=== PATIENT | female | born 1985 | race African-American/Black ===

== ENCOUNTER 2021-03-31 14:48 | Emergency (ER) | payer OTHER, SELFPAY ==
[2021-03-31 14:52] VITALS: BP 115/73; PULSE 88; RESP 18; TEMP 37.1; O2SAT 93; BMI 27.4
--- NOTE | 2021-03-31 15:10 | ED_ITS ---
HPI - General Adult General Chief complaint: General Medical Stated complaint: loss of taste and smell, headache Source: patient Mode of arrival: ambulatory Limitations: no limitations History of Present Illness HPI narrative: Patient presents to ED for loss of taste and loss of smell but slight headache. Patient states loss of taste and loss of some a for the last 3 days and this morning woke up with feeling warm, body aches, slight headache. Patient got swab at her job for COVID. Patient got swab with the COVID PCR sent out and is waiting for results. Patient states most likely she will have results by tomorrow. Patient denies any chest pain or shortness of breath. Related Data Allergies Allergy/AdvReac Type Severity Reaction Status Date / Time No Known Allergies Allergy Verified 03/31/21 15:11 Review of Systems Review of Systems: Yes all other systems are reviewed and are negative Constitutional: Constitutional: Reports as per HPI, Reports no additional constitutional complaints, Reports body ache(s) and Reports headache(s) Eyes: Eyes: Reports as per HPI and Reports no additional eye complaints ENT: Reports system reviewed and no additional complaints, except as documented, Reports as per HPI and Reports headache(s) Comments: Loss of taste and loss of smell Cardiovascular: Cardiovascular: Reports as per HPI and Reports no additional cardiovascular complaints Respiratory: Respiratory: Reports as per HPI and Reports no additional respiratory complaints Gastrointestinal: Gastrointestinal: Reports as per HPI and Reports no additional gastrointestinal complaints Genitourinary: Genitourinary: Reports no additional female genitourinary complaints and Reports as per HPI Musculoskeletal: Musculoskeletal: Reports no additional musculoskeletal complaints and Reports as per HPI Neurologic: Reports system reviewed and no additional complaints, except as documented, Reports as per HPI and Reports headache(s) Psychiatric: Psychiatric: Reports no additional psychiatric complaints and Reports as per HPI [facility] Past Medical History Medical History (Updated 03/31/21 @ 15:56 by WENDY Keys) No active medical problems Social History Social History Smoking Status: Never smoker Use of substances other than those prescribed or required for medical reasons: No Advance Directives: No Advance Directives Information Provided: Yes Patient : No Physical Exam Vital Signs: Vital Signs: Last Vital Signs Temp 98.7 F 03/31/21 14:52 Pulse 87 03/31/21 15:30 Resp 18 03/31/21 15:30 BP 105/67 03/31/21 15:30 Pulse Ox 95 05/09/21 15:30 Body Mass Index 27.4 Const: General: cooperative, healthy appearing, comfortable, no acute distress, well developed, alert, awake and Physically active Orientation/consciousness: patient oriented x3 HENMT: Head: Yes normal to inspection, Yes No palpable skull fracture present, Yes normocephalic and Yes atraumatic Eyes: General: appearance normal, both eyes and all related structures Neck: Neck: Yes normal visual inspection, Yes full ROM, Yes no lymphadenopathy, Yes no meningeal signs, Yes trachea midline, Yes supple and No tender Chest: Chest palpation & inspection: normal inspection of the chest and normal palpation of entire chest wall Resp: Effort & Inspection: normal respiratory effort and able to speak in complete sentences Auscultation: clear to auscultation bilaterally Cardio: Jugular venous distension: no JVD Heart sounds: S1 normal heart sound present and S2 normal heart sound present GI: Inspection: Yes normal to inspection and No abdominal wall ecchymosis Palpation (GI): Soft to palpation, not firm, nontender, no guarding and not rigid : General: No CVA tenderness and Yes no CVA tenderness Back/Spine/Pelvis: Back: no CVA tenderness, No CVA tenderness and No back tenderness Skin: General skin exam: no rashes or lesions noted and elasticity normal Neuro: General: patient oriented x3, no meningeal signs and CN's II-XI intact bilaterally Cranial nerves: Yes CN's II-XII intact bilaterally Extrem: General: Yes normal to inspection and Yes full ROM Psych: Appearance: grossly normal, well kempt and not disheveled Course Course Course Narrative: Patient not in any distress. Patient vital signs stable. Will do the COVID ab and rapid swab results. Patient already had PCR swab done yesterday at her job waiting for results. Reevaluation(s) Reevaluation #1: Patient's COVID swab came back positive. Patient made aware of this. Patient informed to self quarantine for 2 weeks. Patient informed to return to the ED immediately if she has chest pain or shortness of breath. Medical Decision Making MDM Narrative Medical decision making narrative: COVID Lab Data Labs: Lab Results 03/31/21 Range/Units 15:21 COVID-19 ([facility]) Positive A (Negative) COVID-19 Clin Com See Note Discharge Plan Discharge Clinical Impression: COVID-19 Patient Disposition: Home, Self-Care Instructions: COVID-19 (Coronavirus Disease 2019) (ED) Additional Instructions: Return to the ED immediately for any chest pain, shortness of breath, dizziness, weakness, calf pain, coughing up blood, swelling of lower extremities, or any other concerning symptoms. Recommend 14 days self-isolation. Stand Alone Forms: Work/School Release Interventions: ED Discharge Assessment Last Done: 03/31/21 16:04 Discharge Date/Time: 03/31/21 16:05 Print Language: Guamanian
[2021-03-31 15:30] VITALS: BP 105/67; PULSE 87; RESP 18; O2SAT 95
[2021-03-31 15:46] LABS: COVID-19 Test Positive (Negative); IDNOW Serial# 08D9AD1C
== END 2021-03-31 16:05 | disposition home or self-care (01) ==
PROVIDERS: Physician Assistant; Emergency Provider Emergency Medicine Emergency Medical Services
DX: U07.1 COVID-19 (principal); R43.8 Other disturbances of smell and taste; R51.9 Headache, unspecified
CPT/HCPCS: 36415; 87635; 99284

== ENCOUNTER 2021-04-15 13:18 | Outpatient (REF) | payer OTHER, SELFPAY ==
[2021-04-15 13:39] LABS: COVID-19 Test Negative (Negative)
== END 2021-04-15 13:19 | disposition home or self-care (01) ==
LOC: HO.LAB 13:18
PROVIDERS: Visit Provider Internal Medicine
DX: Z20.822 Contact with and (suspected) exposure to COVID-19 (principal)
CPT/HCPCS: 36415; 87635; C9803

== ENCOUNTER 2021-06-18 11:53 | Outpatient (REF) | payer OTHER, SELFPAY | END 2021-06-18 11:54 | disposition home or self-care (01) | LOC: HO.LAB 11:53 | PROVIDERS: Visit Provider Internal Medicine | DX: Z20.822 Contact with and (suspected) exposure to COVID-19 (principal) | CPT/HCPCS: C9803; U0003; U0005 ==

== ENCOUNTER 2021-11-27 15:32 | Outpatient (REF) | payer OTHER, SELFPAY ==
--- NOTE | ~2021-11-27 | CT_ITS ---
EXAMINATION: CT ABDOMEN AND PELVIS WITH CONTRAST CLINICAL INFORMATION: RLQ pain, R flank pain, ectopic, rule out appy, kid stone COMPARISON: None TECHNIQUE: Multidetector volumetric images were obtained from the superior aspect of the liver through the pubic symphysis following administration 85 mL of Omnipaque 350 intravenous contrast. Sagittal and coronal reformatted images were obtained on the technologist's workstation. Oral contrast: No This CT examination was performed using dose optimization techniques as appropriate, variously including the following: *Automated exposure control *Adjustment of mA and/or kV according to patient size (this includes techniques or standardized protocols for targeted exams where dose is matched to indication/reason for exam; i.e. extremities or head) *Use of iterative reconstruction technique DLP: 559 mGy-cm FINDINGS: LUNG BASES: The visualized lung bases are unremarkable. Minimal scarring present at the right lung base LIVER, GALLBLADDER, AND BILIARY TREE: The liver is normal in size, shape, and attenuation. Characteristic hypodensity adjacent to falciform ligament probably secondary to focal fat or differences in venous drainage. This is not a worrisome finding. No concerning focal hepatic lesion or biliary ductal dilatation is present. The gallbladder is unremarkable with no evidence of radiopaque gallstones, gallbladder wall thickening, or obvious pericholecystic inflammatory changes. PANCREAS: Unremarkable. SPLEEN: Unremarkable. ADRENAL GLANDS: Unremarkable. KIDNEYS AND URETERS: The kidneys are normal in size, shape, and attenuation. Tiny bilateral renal cortical densities are seen the largest measuring only 6 mm in size. These are all indeterminate but statistically cysts. These need no further follow-up. No worrisome definite solid renal mass is seen No hydronephrosis, hydroureter, or calculi seen. No perinephric stranding. BLADDER: Poorly filled but unremarkable. GASTROINTESTINAL TRACT: The small and large bowel are unremarkable. The appendix is unremarkable. ABDOMINAL WALL: No significant hernia is appreciated. LYMPH NODES: No retroperitoneal lymphadenopathy. VASCULAR: Both ovarian veins aren't dilated demonstrating reflux filling bilateral pelvic varices the aorta and iliofemoral vessels appear normal. The IVC is unremarkable.. PELVIC VISCERA: The small rounded abnormality that contained a questionable gestational sac on the ultrasound is seen on the CT scan and measures 2 cm diameter.) 4:512). The shadowing structure in the left adnexa is well seen on the CT and represents a water density cyst with a thick walled eggshell type calcified rim. A small amount of free fluid is present in the pelvis. OSSEOUS STRUCTURES: Unremarkable. CT/CT abdomen pelvis w con IMPRESSION: * Similar findings that were present on ultrasound are demonstrated on the CAT scan. There is a question of an ectopic in the right adnexa. Please correlate with hCG levels. * The findings seen on the left represents a benign appearing thick walled calcified ovarian cyst. * No renal calculi or hydronephrosis is seen. Fleischner guidelines were followed.
--- NOTE | ~2021-11-27 | US_ITS ---
EXAMINATION: US OBSTETRICAL ULTRASOUND CLINICAL INFORMATION: Right-sided pelvic pain with positive test COMPARISON: None. LMP: Uncertain. TECHNIQUE: Both transabdominal and endovaginal scanning was performed FINDINGS: The uterus appears enlarged measuring 10.3 x 6.3 x 6.8 cm. The endometrium appears quite thick but was not measured by the technologist.. It appears to measure at least 1.6 cm. A gestational sac is not seen. No fluid is present in the endometrial canal The left ovary measures 3.1 x 2.2 x 2.9 cm and contains a 1.6 x 1.1 x 1.3 cm cyst. Complex fluid is present in the left adnexa as well as in the cul-de-sac. Within the left adnexa adjacent to the left ovary there is a structure that it appears to be a gestational sac with a yolk sac within. Based upon the size of this, gestational is present this would be about 5 weeks. No heartbeat or pole is seen. Also seen in the left adnexa is a shadowing mass poorly characterized measuring about 4.1 x 2.8 x 2.7 cm questioning a dermoid. US/US OB pelvic and transvaginal IMPRESSION: A gestational sac is not present in the endometrial canal. There is a question of an ectopic gestational sac in the left adnexa the yolk sac seen but no pole or heartbeat. Given the presence of a question of an abnormal left adnexal mass as well, pelvic MRI may be of value.
[2021-11-27 17:07] VITALS: BP 135/70; PULSE 88; RESP 18; TEMP 36.6; O2SAT 100; BMI 26.5
[2021-11-27 18:03] LABS: Appearance Urine CLEAR; Color Urine YELLOW; Glucose Urine UA NEG (NEG); Leukocyte Esterase Urine NEG (NEG); Nitrite Urine NEG (NEG); Specific Gravity - Urine 1.025 (1.005-1.025); UACC Culture Trigger NO; Urine Blood TRACE (NEG); Urine Ketones 5 MG/DL (NEG); Urine Protein TRACE MG/DL (NEG-TRACE)
[2021-11-27 18:04] LABS: UPreg QC Valid YES; Urine Pregnancy POSITIVE (NEGATIVE)
[2021-11-27 18:14] LABS: Mucus Urine 2+ /LPF; Squamous Epithelial Cell Urine 1+ /LPF
[2021-11-27 18:16] LABS: Bacteria Urine TRACE /LPF; WBC Urine 0-2 /HPF (0-4)
[2021-11-27 20:10] LABS: MANUAL DIFF FLAG NO
[2021-11-27 20:15] LABS: Basophils Percent Auto 0.3 % (0-2); Eosinophils Absolute Auto 0.1 X10*3/uL (0.0-0.4); Eosinophils Percent Auto 0.5 % (0-4); Hematocrit 37.1 % (37.0-47.0); Hemoglobin 12.5 g/dl (12.0-16.0); Imm Gran Abs Auto 0.06 X10*3/uL (0.00-0.03); Imm Gran Pct Auto 0.5 % (0.0-0.4); Lymphocytes Absolute Auto 3.1 X10*3/uL (1.2-4.9); Lymphocytes Percent Auto 25.7 % (20-40); Mean Corpuscular HGB Conc 33.7 g/dl (31.0-35.0); Mean Corpuscular Hemoglobin 30.7 pg (27.0-33.0); Mean Corpuscular Volume 91.2 fL (80.0-98.0); Mean Platelet Volume 10.1 fL (9.4-12.3); Monocytes Absolute Auto 1.1 X10*3/uL (0.1-1.2); Monocytes Percent Auto 8.9 % (2-11); Neutrophils Absolute Auto 7.7 x10*3/uL (2.0-8.3); Neutrophils Percent Auto 64.1 % (45-73); Platelet Count 314 X10*3/uL (160-400); Red Blood Count 4.07 X10*6/uL (4.20-5.50); Red Cell Distribution Width 13.1 % (11.0-16.0)
[2021-11-27 20:28] LABS: Alanine Aminotransferase 18 U/L (0-31); Albumin Level 4.4 g/dL (3.5-5.0); Alkaline Phosphatase 43 U/L (39-117); Anion Gap 11 (12-20); Aspartate Amino Transferase 17 U/L (5-31); Bilirubin Total 0.7 mg/dL (0.0-1.0); Blood Urea Nitrogen 8 mg/dL (9-16); Carbon Dioxide 28 mmol/L (22-29); Chloride 105 mmol/L (96-108); Creatinine Clr Calc Pharmacy 106.3; Estimated Glomerular Filt Rate > 60; Glucose Random 84 mg/dL (60-115); Lipase 9 U/L (8-78); Potassium 3.9 mmol/L (3.3-5.1); Sodium 140 mmol/L (135-145); Total Protein 7.3 g/dL (6.5-8.0)
[2021-11-27 20:30] VITALS: BP 102/57; PULSE 81; RESP 16; TEMP 37.3; O2SAT 100
[2021-11-27 20:34] LABS: HCG Quantitative 4367 mIU/mL
--- NOTE | 2021-11-27 21:05 | ED_ITS ---
HPI - Abdominal Pain General Chief Complaint: Abdominal Pain Stated Complaint: abd pain Time Seen by Provider: 11/27/21 18:08 Source: patient Mode of arrival: ambulatory Limitations: no limitations History of Present Illness HPI narrative: 35-year-old female Who presents emergency department for evaluation of right lower quadrant and right flank pain. Patient states that yesterday at around 1:00 p.m. after eating [place] food she had a sudden onset sharp pain in her right lower quadrant and her right flank area. She states the pain was a constant pain and was 10/10. She had multiple episodes of nausea and vomiting associated with the pain. She states that today the pain was less severe but is still located in the right lower quadrant of her abdomen. She has had nausea with no vomiting. patient had a positive urine test here in the emergency department, she did not know that she was . The patient's last menstrual was October 20, 2021 which would make her approximately 5 weeks . The patient therefore is a , she states she has 2 children. She denied fever, chills, chest pain, shortness of breath, frequency, urgency or dysuria. Related Data Allergies Allergy/AdvReac Type Severity Reaction Status Date / Time No Known Allergies Allergy Verified 11/27/21 17:06 Review of Systems Review of Systems Yes all other systems are reviewed and are negative Physical Exam Vital Signs: Vital Signs: Last Vital Signs Temp 99.1 F 11/27/21 20:30 Pulse 81 11/27/21 20:30 Resp 16 11/27/21 20:30 BP 102/57 L 11/27/21 20:30 Pulse Ox 100 11/27/21 20:30 BMI result Body Mass Index 26.5 Const: General: cooperative and no acute distress Or ientation/consciousness: oriented to person and oriented to place Limitat ions: no limitations HENMT: Head: Yes normal to inspection, Yes normocephalic and Yes atraumatic Ears: external ears normal General nose exam: Normal external nose present Face and sinus: Yes normal facial exam Mouth: Normal oral and palatal mucosa present Throat: Yes posterior oropharynx normal Eyes: General: appearance normal, both eyes and all related structures Pupils: Equal, round and reactive pupils present Neck: Neck: Yes normal visual inspection, Yes no lymphadenopathy, Yes trachea midline and Yes supple Chest: Chest palpation & inspection: normal inspection of the chest and normal palpation of entire chest wall Resp: Effort & Inspection: normal respiratory effort and able to speak in complete sentences Auscultation: clear to auscultation bilaterally Cardio: Rate: regular rate Rhythm: regular rhythm Heart sounds: S1 normal heart sound present, S2 normal heart sound present and no murmurs GI: Inspection: Yes normal to inspection Palpation (GI): Soft to palpation, Tenderness to palpation present (GI) in the RLQ ( Moderate) and suprapubicly ( moderate); Negative for not in the LLQ and not in the LUQ and no guarding Auscultation: normal bowel sounds : General: Yes no CVA tenderness Back/Spine/Pelvis: Back: no CVA tenderness Skin: General skin exam: no rashes or lesions noted Neuro: General: oriented to person and oriented to place Cranial nerves: Yes CN's II-XII intact bilaterally and Yes Equal, round and reactive pupils present Cognition (Neuro): normal cognition Motor exam (neuro): 5/5 motor strength present throughout Extrem: General: Yes normal to inspection Psych: Appearance: grossly normal Speech and movement: Normal speech and movement present Affect: normal affect Attitude: cooperative Thought process: Normal thought process present Thought content: Normal thought content present Course Course Course Narrative: 35-year-old female who presented to emergency department for evaluation of sudden onset right lower quadrant and right flank pain which began yesterday at 1:00 p.m. after she ate [place] food. The patient stated the pain was 10/10 and associated with nausea and vomiting. The pain also radiated to her vaginal area. The patient had persistent pain today and came to the emergency department for evaluation. The patient did not know that she was until we obtained a positive urine test. Patient is a . 2143: Laboratory evaluation: CBC and a normal comprehensive metabolic panel. Patient's urinalysis was trace positive for blood, trace positive for protein, microscopic revealed 4 RBCs, 2 WBCs 1 +bacteria 1+ squamous cells. Urine test was positive. Quantitative beta-hCG was 4367. Radiology evaluation : Pelvic ultrasound revealed complex fluid in the left adnexa as well and as in the called a sacs Within the left adnexa adjacent to the left ovary there is a structure that appears to be a gestational sac with a yolk sac and based on the size the patient is approximately 5 weeks This gestational age correlates with her LMP. There is no heartbeat or pole noted. Patient also has a left adnexal mass poorly characterized measuring 4 x by 2.8 x 2.7 cm questioning and dermoid cyst. I discuss these findings with Dr. Guevara who will come to the emergency department evaluate the patient. 2321: The patient's CT scan is more consistent with a right ectopic and I did discuss this with the radiologist who interpreted the x- rays. I did discuss this reading also with the surgeon, . the patient does have right lower quadrant tenderness which correlates more with the radiologist CT scan reading. Given the fact that there was a concern about a ruptured ectopic, the patient is still going to go to the emergency department for exploratory surgery as per . MDM - Abdominal Pain Lab Data Result diagrams: 11/27/21 20:05 11/27/21 20:05 Labs: Lab Results 11/27/21 11/27/21 11/27/21 Range/Units 17:54 17:54 20:05 WBC 12.0 H (4.8-10.8) X10*3/uL RBC 4.07 L (4.20-5.50) X10*6/uL Hgb 12.5 (12.0-16.0) g/dl Hct 37.1 (37.0-47.0) % MCV 91.2 (80.0-98.0) fL MCH 30.7 (27.0-33.0) pg MCHC 33.7 (31.0-35.0) g/dl RDW 13.1 (11.0-16.0) % Plt Count 314 (160-400) X10*3/uL MPV 10.1 (9.4-12.3) fL Immature Gran % (Auto) 0.5 H (0.0-0.4) % Neut % (Auto) 64.1 (45-73) % Lymph % (Auto) 25.7 (20-40) % [place] % (Auto) 8.9 (2-11) % Eos % (Auto) 0.5 (0-4) % Baso % (Auto) 0.3 (0-2) % Lymph # (Auto) 3.1 (1.2-4.9) X10*3/uL [place] # (Auto) 1.1 (0.1-1.2) X10*3/uL Eos # (Auto) 0.1 (0.0-0.4) X10*3/uL Baso # (Auto) 0.0 (0.0-0.2) X10*3/uL Abs Immat Gran (auto) 0.06 H (0.00-0.03) X10*3/uL Absolute Neuts (auto) 7.7 (2.0-8.3) x10*3/uL Absolute Nucleated RBC 0.000 (0.0-0.012) X10*3/uL Nucleated RBC % (auto) 0.0 (0.0-0.2) /100WBC Sodium (135-145) mmol/L Potassium (3.3-5.1) mmol/L Chloride (96-108) mmol/L Carbon Dioxide (22-29) mmol/L Anion Gap (12-20) BUN (9-16) mg/dL Creatinine (0.5-1.4) mg/dL Estim Creat Clear Calc Estimated GFR Random Glucose (60-115) mg/dL Calcium (8.4-10.2) mg/dL Total Bilirubin (0.0-1.0) mg/dL AST (5-31) U/L ALT (0-31) U/L Alkaline Phosphatase (39-117) U/L Total Protein (6.5-8.0) g/dL Albumin (3.5-5.0) g/dL Lipase (8-78) U/L Beta HCG, Quant mIU/mL Urine Color YELLOW Urine Appearance CLEAR Urine pH 6.0 (5.0-8.0) Ur Specific [place] 1.025 (1.005-1.025) Urine Protein TRACE (NEG-TRACE) MG/DL Urine Glucose (UA) NEG (NEG) MG/DL Urine Ketones 5 (NEG) MG/DL Urine Blood TRACE (NEG) Urine Nitrite NEG (NEG) Ur Leukocyte Esterase NEG (NEG) Urine RBC 1-4 (0) /HPF Urine WBC 0-2 (0-4) /HPF Ur Squamous Epith Cells 1+ /LPF Urine Bacteria TRACE /LPF Urine Mucus 2+ /LPF Urine Test POSITIVE H (NEGATIVE) COVID-19 ([facility]) (Negative) COVID-19 Clin Com 11/27/21 11/27/21 11/27/21 Range/Units 20:05 20:05 21:18 WBC (4.8-10.8) X10*3/uL RBC (4.20-5.50) X10*6/uL Hgb (12.0-16.0) g/dl Hct (37.0-47.0) % MCV (80.0-98.0) fL MCH (27.0-33.0) pg MCHC (31.0-35.0) g/dl RDW (11.0-16.0) % Plt Count (160-400) X10*3/uL MPV (9.4-12.3) fL Immature Gran % (Auto) (0.0-0.4) % Neut % (Auto) (45-73) % Lymph % (Auto) (20-40) % [place] % (Auto) (2-11) % Eos % (Auto) (0-4) % Baso % (Auto) (0-2) % Lymph # (Auto) (1.2-4.9) X10*3/uL [place] # (Auto) (0.1-1.2) X10*3/uL Eos # (Auto) (0.0-0.4) X10*3/uL Baso # (Auto) (0.0-0.2) X10*3/uL Abs Immat Gran (auto) (0.00-0.03) X10*3/uL Absolute Neuts (auto) (2.0-8.3) x10*3/uL Absolute Nucleated RBC (0.0-0.012) X10*3/uL Nucleated RBC % (auto) (0.0-0.2) /100WBC Sodium 140 (135-145) mmol/L Potassium 3.9 (3.3-5.1) mmol/L Chloride 105 (96-108) mmol/L Carbon Dioxide 28 (22-29) mmol/L Anion Gap 11 L (12-20) BUN 8 L (9-16) mg/dL Creatinine 0.67 (0.5-1.4) mg/dL Estim Creat Clear Calc 106.3 Estimated GFR > 60 Random Glucose 84 (60-115) mg/dL Calcium 10.0 (8.4-10.2) mg/dL Total Bilirubin 0.7 (0.0-1.0) mg/dL AST 17 (5-31) U/L ALT 18 (0-31) U/L Alkaline Phosphatase 43 (39-117) U/L Total Protein 7.3 (6.5-8.0) g/dL Albumin 4.4 (3.5-5.0) g/dL Lipase 9 (8-78) U/L Beta HCG, Quant 4367 mIU/mL Urine Color Urine Appearance Urine pH (5.0-8.0) Ur Specific [place] (1.005-1.025) Urine Protein (NEG-TRACE) MG/DL Urine Glucose (UA) (NEG) MG/DL Urine Ketones (NEG) MG/DL Urine Blood (NEG) Urine Nitrite (NEG) Ur Leukocyte Esterase (NEG) Urine RBC (0) /HPF Urine WBC (0-4) /HPF Ur Squamous Epith Cells /LPF Urine Bacteria /LPF Urine Mucus /LPF Urine Test (NEGATIVE) COVID-19 ([facility]) Negative (Negative) COVID-19 Clin Com See Note Discharge Plan Discharge Patient Disposition: Admitted As Inpatient [facility] Past Medical History [facility] Narrative: Past medical history: None. Past surgical history: None. Social history: She denies tobacco use. She occasionally drinks alcohol. She denies drug use. Medical History No active medical problems Social History Social History Advance Directives: No Advance Directives Information Provided: No Patient : No
[2021-11-27 21:41] LABS: COVID-19 Test Negative (Negative)
--- NOTE | 2021-11-27 21:53 | P.CONOB_ITS ---
[employer] - CN: HPI Data of Consult Consult date: 11/27/21 Primary Care Provider: None Physician Consult Narrative Narrative: I was consulted on Myriam Orozco who is a 35 year old 3 para 2, LMP October 14 2021, making her by today at 6 weeks 2 days of gestation who presented to the emergency department complaining of of right lower quadrant and right flank pain, the pain started around 1:00 p.m. evelyn hollins, was sharp in her right lower quadrant and her right flank area.? She states the pain was a constant pain and was 10/10, associated with multiple episodes of nausea and vomiting .? She states that today the pain is persistent but with less severe.?She denied fever, chills, chest pain, shortness of breath, frequency, urgency or dysuria. The following workup was done in the emergency room : a positive urine test , H&H 37.1/12.5, hCG 4367. Rh pending, pelvic Ultrasound showed the following: A gestational sac is not present in the endometrial canal.There is a question of an ectopic gestational sac in the left adnexa the yolk sac seen but no pole or heartbeat, Complex fluid is present in the left adnexa as well as in the cul-de-sac. Also seen in the left adnexa is a shadowing mass poorly characterized measuring about 4.1 x 2.8 x 2.7 cm questioning a dermoid. CT scan: The small rounded abnormality that contained a questionable gestational sac on the ultrasound is seen on the CT scan and measures 2 cm diameter.) 4:512). The shadowing structure in the left adnexa is well seen on the CT and represents a water density cyst with a thick walled eggshell type calcified rim. A small amount of free fluid is present in the pelvis. cc:: CC: [employer] - Review of Systems Review of Systems ROS Unobtainable: All systems reviewed & are unremarkable except as noted in HPI and below Cardiovascular: Denies Palpatations, Loss of consciousness or Chest pain Respiratory: Denies Cough, Wheezing or Shortness of breath Musculoskeletal: Denies Low back pain Gastrointestinal: Denies Heartburn, Constipation, Diarrhea, Nausea or Vomiting Genitourinary: Denies Pain with urination, Burning with urination or Urinary frequency Neurological: Denies Migranes Psychological: Denies Depression OB PMF Past Medical History Medical History No active medical problems Social History Social History Advance Directives: No Advance Directives Information Provided: No Patient : No Meds Allergies Allergy/AdvReac Type Severity Reaction Status Date / Time No Known Allergies Allergy Verified 11/27/21 17:06 [employer] Physical Exam Vitals Vital signs: Temp Pulse Resp BP Pulse Ox 99.1 F 81 16 102/57 L 100 11/27/21 20:30 11/27/21 20:30 11/27/21 20:30 11/27/21 20:30 11/27/21 20:30 BMI result Body Mass Index 26.5 Constitutional General Appearance: Healthy appearing, Well-nourished and Well-developed Psychiatric Mood and Affect: active and alert, normal mood and normal affect Skin Appearance: No rashes and No lesions Lungs Respiratory Effort: No intercostal retractions Auscultation: Clear to auscultation Cardiovascular Auscultation: RRR Abdomen Auscultation/Inspection/Palpation: Non-distended and Tenderness (Right lower quadrant) Female Genitalia (Pelvic) Exam: Deferred [employer] - Results Labs CBC & Chem 7: 11/27/21 20:05 11/27/21 20:05 Labs: Short CBC 11/27/21 Range/Units 20:05 WBC 12.0 H (4.8-10.8) X10*3/uL Hgb 12.5 (12.0-16.0) g/dl Hct 37.1 (37.0-47.0) % Plt Count 314 (160-400) X10*3/uL BMP 11/27/21 20:05 Sodium 140 Potassium 3.9 Chloride 105 Carbon Dioxide 28 BUN 8 L Creatinine 0.67 Calcium 10.0 Liver Function 11/27/21 Range/Units 20:05 Total Bilirubin 0.7 (0.0-1.0) mg/dL AST 17 (5-31) U/L ALT 18 (0-31) U/L Alkaline Phosphatase 43 (39-117) U/L Albumin 4.4 (3.5-5.0) g/dL Urine 11/27/21 11/27/21 Range/Units 17:54 17:54 Urine Color YELLOW Urine Appearance CLEAR Urine pH 6.0 (5.0-8.0) Ur Specific [place] 1.025 (1.005-1.025) Urine Protein TRACE (NEG-TRACE) MG/DL Urine Glucose (UA) NEG (NEG) MG/DL Urine Test POSITIVE H (NEGATIVE) Imaging US - abdomen: Radiologist's impression: ITS Impressions Pelvic/Transvag US 11/27/21 19:50 IMPRESSION: A gestational sac is not present in the endometrial canal. There is a question of an ectopic gestational sac in the left adnexa the yolk sac seen but no pole or heartbeat. Given the presence of a question of an abnormal left adnexal mass as well, pelvic MRI may be of value. Assessment and Plan (1) Ectopic : Status: Acute Discussed with the patient the finding ultrasound, ectopic with complex fluid in the left adnexa and within the cul-de-sac, CT scan the 2 cm right ( not left) ectopic , small amount of fluid in the cul-de-sac and benign looking thick-walled calcified ovarian cyst. Since ultrasound is showing complex fluid adnexa and the cul-de-sac, ruptured tubal has to be ruled out. Given these findings I recommended laparoscopic salpingostomy/salpi ngectomy possible laparosocpic ovarian cystectomy/oophorectomy. All pros and cons, risks and benefits of each option were discussed with the patient including but not limited to: Bleeding, infection, possible injury to bladder, bowel, possible need for blood transfusion with all its risks, possible laparotomy, possible negative impact on future fertility, possible hysterectomy, in addition, discussed with the patient there is a possibility that the will not be identified grossly during laparoscopy, tubal rupture will be ruled out and then will treat with methotrexate postoperatively with a 15% risk of failure with the need of repeat surgical treatment . All questions answered, the patient verbalized understanding agreed with the plan and signed the consent (2) Ovarian cyst: Status: Acute Discussed with the patient the finding the ovarian cyst possible dermoid on ultrasound, and the following finding on CT scan: The findings seen on the left represents a benign appearing thick walled? calcified? ovarian cyst . discussed with the patient options of treatment including: Since CT scan is suggesting benign looking ovarian cyst expectant management is an option with repeat ultrasound in few months if persistent proceed with surgical treatment versus surgical treatment today by laparoscopic ovarian cystectomy/oophorectomy, all pros and cons, risks and benefits of each approach were discussed with the patient the patient decided to proceed with expectant management unless intrapelvic pathology is secondary to the ovarian cyst and necessitates ovarian cystectomy/oophorectomy
[2021-11-27] MEDS: iohexoL 350 MG/ML 100 ML INFUS..BTL IV (22:04)
[2021-11-28] VITALS (12 sets, daily range): BP systolic 100–142; BP diastolic 48–85; PULSE 90–115; RESP 16–20; TEMP 36.4–36.7; O2SAT 97–100
--- NOTE | 2021-11-28 00:13 | HO.ANESPROP2 ---
[facility] Active Problems Active Problems: All Active Problems (Updated 11/27/21 @ 23:23 by Asa Carballo MD) Ovarian cyst (Acute) Ectopic (Acute) COVID-19 (Acute) Past Medical History Medical History No active medical problems Family History Family history of problems with anesthesia: No Surgical History History of Problems with Anesthesia: No Social History Social History Advance Directives: No Advance Directives Information Provided: No Patient : No Meds Allergies Allergy/AdvReac Type Severity Reaction Status Date / Time No Known Allergies Allergy Verified 11/27/21 17:06 Exam Exam Date and Time: November 28, 2021 001 Height,Weight and Vital Signs: Height 5 ft 2 in Weight 65.771 kg Last Vital Signs Temp 99.1 F 11/27/21 20:30 Pulse 81 11/27/21 20:30 Resp 16 11/27/21 20:30 BP 102/57 L 11/27/21 20:30 Pulse Ox 100 11/27/21 20:30 Pertinent Lab Results Pertinent Lab Results: Laboratory Tests 11/27/21 11/27/21 11/27/21 17:54 17:54 20:05 WBC 12.0 H RBC 4.07 L Hgb 12.5 Hct 37.1 MCV 91.2 MCH 30.7 MCHC 33.7 RDW 13.1 Plt Count 314 MPV 10.1 Immature Gran % (Auto) 0.5 H Neut % (Auto) 64.1 Lymph % (Auto) 25.7 Roberts % (Auto) 8.9 Eos % (Auto) 0.5 Baso % (Auto) 0.3 Lymph # (Auto) 3.1 Roberts # (Auto) 1.1 Eos # (Auto) 0.1 Baso # (Auto) 0.0 Abs Immat Gran (auto) 0.06 H Absolute Neuts (auto) 7.7 Absolute Nucleated RBC 0.000 Nucleated RBC % (auto) 0.0 Sodium Potassium Chloride Carbon Dioxide Anion Gap BUN Creatinine Estim Creat Clear Calc Estimated GFR Random Glucose Calcium Total Bilirubin AST ALT Alkaline Phosphatase Total Protein Albumin Lipase Beta HCG, Quant Urine Color YELLOW Urine Appearance CLEAR Urine pH 6.0 Ur Specific [place] 1.025 Urine Protein TRACE Urine Glucose (UA) NEG Urine Ketones 5 Urine Blood TRACE Urine Nitrite NEG Ur Leukocyte Esterase NEG Urine RBC 1-4 Urine WBC 0-2 Ur Squamous Epith Cells 1+ Urine Bacteria TRACE Urine Mucus 2+ Urine Test POSITIVE H COVID-19 (QUANG) COVID-19 [employer] Com Blood Type Antibody Screen 11/27/21 11/27/21 11/27/21 20:05 20:05 21:18 WBC RBC Hgb Hct MCV MCH MCHC RDW Plt Count MPV Immature Gran % (Auto) Neut % (Auto) Lymph % (Auto) [place] % (Auto) Eos % (Auto) Baso % (Auto) Lymph # (Auto) [place] # (Auto) Eos # (Auto) Baso # (Auto) Abs Immat Gran (auto) Absolute Neuts (auto) Absolute Nucleated RBC Nucleated RBC % (auto) Sodium 140 Potassium 3.9 Chloride 105 Carbon Dioxide 28 Anion Gap 11 L BUN 8 L Creatinine 0.67 Estim Creat Clear Calc 106.3 Estimated GFR > 60 Random Glucose 84 Calcium 10.0 Total Bilirubin 0.7 AST 17 ALT 18 Alkaline Phosphatase 43 Total Protein 7.3 Albumin 4.4 Lipase 9 Beta HCG, Quant 4367 Urine Color Urine Appearance Urine pH Ur Specific [place] Urine Protein Urine Glucose (UA) Urine Ketones Urine Blood Urine Nitrite Ur Leukocyte Esterase Urine RBC Urine WBC Ur Squamous Epith Cells Urine Bacteria Urine Mucus Urine Test COVID-19 ([facility]ANG) Negative COVID-19 [employer] Com See Note Blood Type Antibody Screen 11/27/21 23:26 WBC RBC Hgb Hct MCV MCH MCHC RDW Plt Count MPV Immature Gran % (Auto) Neut % (Auto) Lymph % (Auto) [place] % (Auto) Eos % (Auto) Baso % (Auto) Lymph # (Auto) [place] # (Auto) Eos # (Auto) Baso # (Auto) Abs Immat Gran (auto) Absolute Neuts (auto) Absolute Nucleated RBC Nucleated RBC % (auto) Sodium Potassium Chloride Carbon Dioxide Anion Gap BUN Creatinine Estim Creat Clear Calc Estimated GFR Random Glucose Calcium Total Bilirubin AST ALT Alkaline Phosphatase Total Protein Albumin Lipase Beta HCG, Quant Urine Color Urine Appearance Urine pH Ur Specific [place] Urine Protein Urine Glucose (UA) Urine Ketones Urine Blood Urine Nitrite Ur Leukocyte Esterase Urine RBC Urine WBC Ur Squamous Epith Cells Urine Bacteria Urine Mucus Urine Test COVID-19 (QUANG) COVID-[employer] Com Blood Type B Positive Antibody Screen NEGATIVE Airway Mallampati Class: II TM Dist: >3cm Neck ROM: Full Assessment and Plan Assessment Anesthesia Assessment: Anesthesia Plan Discussed and Chart Reviewed Final Anesthetic Review Family History of Problems with Anesthesia: No History of Problems with Anesthesia: No NPO: Yes ASA Class: I and Emergency Final Preanesthetic Review: Meds/Allgs Chart Reviewed, Consent Obtained/Reviewed and Anes Risks/Benef Reviewed Patient Risk: Low Procedure Risk: Intermediate Anesthetic Plan Anesthetic Plan: GA Disposition: Standard PACU
--- NOTE | 2021-11-28 00:59 | P.BOP_ITS ---
Brief Operative Note Date of Service: 11/28/21 Pre-op diagnosis: ectopic Post-op diagnosis: same ( left tubal ectopic , hemoperitoneum, bilateral normal ovaries, subserosal 4 cm fundal myoma) Procedure: Laparoscopic left partial salpingectomy, evacuation of hemoperitoneum Surgeon: Ghanshyam Guevara MD Anesthesia: GETA Was an Exceptional Children Teacher Assistant used for this Procedure?: No Estimated blood loss (mL): 0 Pathology: other ( partial left fallopian tubes with tubal ) Condition: stable Disposition: PACU
--- NOTE | 2021-11-28 01:01 | P.OP_ITS ---
Operative Note Operative Note Date of Service: 11/28/21 Narrative: PREOPERATIVE DIAGNOSIS:? tubal ectopic POSTOPERATIVE DIAGNOSIS:?3-4 cm left ecotpic filling up most of the tubal length with bluish discoloration, 50 cc of hemoperitoneum, 4 cm subserosal fundal left calcified myoma Procedure: left partial salpingectomy QBL: Minimal Anesthesia: GETA SURGEON:? Ghanshyam Guevara MD?? Power Plant Operator Apprentice:None Complications: None Pathology: left partial Fallopian tubes? with tubal DESCRIPTION OF PROCEDURE:?The patient was taken to the OR where general anesthesia was easily obtained. The patient was then prepped and draped in a sterile fashion and placed in dorsal lithotomy position. A speculum was introduced into the patient?s vagina for cervical visualization. a was introduced into the patient?s cervix. The single tooth tenaculum was then removed and hemostasis was assured?using pressure. a Escobar catheter?was inserted and clear urine started draining. Gloves were changed to clean ones. Attention was then drawn to the abdomen where a 10 mm longitudinal incision was done intra umbilical and carried down all the way to the fascia, which was tented?up using 2 Juanis clamps and was nicked in the midline and then extended on both end of the incision?, them using 2 pick?ups the peritoneum?was entered with Metzenbaum scissors and under direct visualization, a 10 mm Guerra trocar was introduced into the patient?s abdomen. Once intraperitoneal placement was confirmed with direct visualization, pneumoperitoneum was started & was easily obtained.Then, two fingerbreadths above the pubic symphysis and towards the?right lower quadrant, under direct visualization, a 5 mm trocar was then introduced into the patient?s abdomen. and a 3rd one on the left?lower quadrant was placed?in a similar manner. The patient was placed in Trendelenburg position, Inspection r evealed left tubal filling up most of the left tube was bluish discoloration and 50 cc of hemoperitoneum, 4 cm fundal left subserosal calcified myoma, normal bilateral ovaries and normal right fallopian tube. Attention was then drawn to the left fallopian tube. Since most of the left tube was filled up with the ectopic with bluish discoloration decision was made to proceed with partial salpingectomy instead of salpingostomy The IP ligament was identified and fallopian tube was then grasped by the fimbria and incised from the mesosalpinx using ligasure device, using cautery for hemostasis and cutting afterwards a bite at a time all the way to the area medial to the edge of the ectopic of the left fallopian tube. Good hemostasis was noted from the left fallopian tube sites and the operative site. Specimen were then removed from the patient?s abdomen using endoloop from the 10 mm trocar through the umbilicus. Copious irrigation was done. Once good hemostasis was noted from the patient?s abdomen, pneumoperitoneum was deflated and all trocars were removed. Infraumbilical fascia was closed with 0 Vicryl and interrupted suture. The skin was closed with 4-0 Vicryl. The Right and left?lower quadrant ports were closed with 0 Vicryl. Bupivicaine 0.25 10 cc were injected subcuticularly in the 3 incisions. Then speculum was put back in the vagina inspection re vealed?hemostasis at the site of the tenaculum, the?sponge stick was removed?from the patient's vagina and Escobar was draining clear urine was taken out too. Sponge, lap and needle counts were correct x2. The patient was taken to the recovery room in stable condition.
[2021-11-28] MEDS: ondansetron HCL 4 MG/2 ML VIAL IVPUSH (01:27)
[2021-11-28] MEDS: fentaNYL citrate/PF 100 MCG/2 ML VIAL 50 MCG IVPUSH ×2 (01:35→02:25)
[2021-11-28] MEDS: oxyCODONE HCl Immed Release 5 MG TABLET PO (02:24)
[2021-11-28] MEDS: Scopolamine 1.5 MG PATCH.TD.3 EAR-BEHIND (03:30)
== END 2021-11-28 03:49 | disposition home or self-care (01) ==
LOC: HO.SSS 11-28 01:11
PROVIDERS: Physician Assistant; Emergency Provider Emergency Medicine Emergency Medical Services; Visit Provider Obstetrics & Gynecology
PROC: 10T24ZZ Resection of Products of Conception, Ectopic, Percutaneous Endoscopic Approach (ICD-10-PCS; CPT 59150; principal; 2021-11-27 23:00)
DX: O00.102 Left tubal pregnancy without intrauterine pregnancy (principal); Z3A.01 Less than 8 weeks gestation of pregnancy; N83.202 Unspecified ovarian cyst, left side; Z20.822 Contact with and (suspected) exposure to COVID-19
CPT/HCPCS: 59151; 36415; 74177; 76801; 76817; 80053; 81001; 81025; 83690; 84702; 85025; 86850; 86900; 86901; 87635; 88302; 88305; 96361; 96365; 96366; 96368; 96375; 96376; 99284; 99285; J1100; J1790; J2250; J2370; J2405; J3010; Q9967

== ENCOUNTER 2021-12-11 11:21 | Outpatient (REF) | payer OTHER, SELFPAY ==
[2021-12-11 13:14] LABS: HCG Quantitative 19 mIU/mL
== END 2021-12-11 11:22 | disposition home or self-care (01) ==
LOC: HO.LAB 11:21
PROVIDERS: Visit Provider Obstetrics & Gynecology
DX: Z30.09 Encounter for other general counseling and advice on contraception (principal); O00.90 Unspecified ectopic pregnancy without intrauterine pregnancy; D25.9 Leiomyoma of uterus, unspecified
CPT/HCPCS: 36415; 84702; 99212

== ENCOUNTER 2022-05-14 11:43 | Emergency (ER) | payer OTHER, SELFPAY ==
[2022-05-14 11:45] VITALS: BP 113/70; PULSE 90; RESP 18; TEMP 36.7; O2SAT 100; BMI 25.7
[2022-05-14] MEDS: Ondansetron ODT 4 MG TAB.RAPDIS TRANSLINGU (11:49)
[2022-05-14 11:56] LABS: MANUAL DIFF FLAG NO
[2022-05-14 11:58] LABS: Basophils Percent Auto 0.2 % (0-2); Eosinophils Percent Auto 0.4 % (0-4); Hematocrit 40.5 % (37.0-47.0); Hemoglobin 13.9 g/dl (12.0-16.0); Imm Gran Abs Auto 0.07 X10*3/uL (0.00-0.03); Imm Gran Pct Auto 0.7 % (0.0-0.4); Lymphocytes Absolute Auto 1.7 X10*3/uL (1.2-4.9); Lymphocytes Percent Auto 16.4 % (20-40); Mean Corpuscular HGB Conc 34.3 g/dl (31.0-35.0); Mean Corpuscular Hemoglobin 29.8 pg (27.0-33.0); Mean Corpuscular Volume 86.9 fL (80.0-98.0); Mean Platelet Volume 10.1 fL (9.4-12.3); Monocytes Absolute Auto 0.9 X10*3/uL (0.1-1.2); Monocytes Percent Auto 9.2 % (2-11); Neutrophils Absolute Auto 7.4 x10*3/uL (2.0-8.3); Neutrophils Percent Auto 73.1 % (45-73); Platelet Count 311 X10*3/uL (160-400); Red Blood Count 4.66 X10*6/uL (4.20-5.50); Red Cell Distribution Width 13.1 % (11.0-16.0); White Blood Count 10.2 X10*3/uL (4.8-10.8)
[2022-05-14 12:00] VITALS: BP 119/71; PULSE 94; RESP 18; TEMP 37.4; O2SAT 97
[2022-05-14 12:14] LABS: Anion Gap 14 (12-20); Blood Urea Nitrogen 9 mg/dL (9-16); Calcium 10.2 mg/dL (8.4-10.2); Carbon Dioxide 22 mmol/L (22-29); Chloride 106 mmol/L (96-108); Creatinine Clr Calc Pharmacy 99.3; Estimated Glomerular Filt Rate > 60; Glucose Random 98 mg/dL (60-115); Potassium 3.6 mmol/L (3.3-5.1); Sodium 138 mmol/L (135-145)
[2022-05-14 12:20] LABS: COVID-19 Test Negative (Negative); IDNOW Serial# 16C4AD1C
--- NOTE | 2022-05-14 12:32 | ED_ITS ---
HPI - Nausea/Vomiting/Diarrhea General Chief complaint: Nausea/Vomiting/Diarrhea Stated complaint: Vomiting X 1 Day Time Seen by Provider: 05/14/22 12:17 Source: patient Mode of arrival: ambulatory Limitations: no limitations History of Present Illness HPI Narrative: Patient comes emergency room complaining of 2 days of nausea and vomiting, no diarrhea, no abdominal pain. Patient denies fever or chills, no URI or UTI symptoms. Patient states that she may be . At this time, patient is , patient had an ectopic 5 months ago. Patient denies any abdominal cramping, no vaginal bleeding/spotting. Patient has regular menstrual periods, states she did have her menstrual period last month as usual. Related Data Previous Rx's Medication Instructions Recorded oxycodone 5 mg tablet 5 mg PO Q3-4H PRN Pain, Severe 11/28/21 (Pain Scale 7-10) #20 tabs desogestrel 0.15 mg-ethinyl 1 tab PO DAILY 28 days #28 tabs 12/11/21 estradiol 0.03 mg tablet (Apri) prenat.vits,kiana,vsd-bzsj-aoscq 1 tab PO DAILY #30 tabs 05/14/22 prochlorperazine maleate 5 mg 5 mg PO TID PRN nausea and 05/14/22 tablet (Compazine) vomiting #20 tabs Allergies Allergy/AdvReac Type Severity Reaction Status Date / Time No Known Allergies Allergy Verified 11/27/21 17:06 Review of Systems Review of Systems: Constitutional : No Weight loss, No Fever, No Chills, No Night Sweats, No Fatigue, No Malaise ENT/Mouth : No Hearing loss, No Ear Pain, No Nasal Congestion, No Sinus Pain, No Hoarseness, No sore throat, No Rhinorrhea, No Swallowing Difficulty Eyes: No Eye Pain, No Swelling, No Redness, No Foreign Body, No Discharge, No Vision Changes Cardiovascular : No Chest Pain, No SOB, No Dyspnea on Exertion, No Orthopnea, No Edema, No Palpitations Respiratory : No Cough, No Sputum, No Wheezing, No Smoke Exposure, No Dyspnea Gastrointestinal : Complaining of nausea and vomiting, No Diarrhea, No Constipation, No abdominal Pain, No Hematochezia, No Melena Genitourinary : no irregular bleeding, No Dysuria, No Urinary Frequency, No Hematuria, No Urinary Incontinence, No Urgency, No Flank Pain, No Urinary Flow Changes, No Hesitancy Musculoskeletal : No joint pain, No Myalgias, No Joint Swelling Skin : No Skin Lesions, No rash Neuro : No Weakness, No Numbness, No Paresthesias, No Loss of Consciousness, No Dizziness, No Headache Psych : No Anxiety/Panic, No Depression, No SI/HI/AH/VH, No Social Issues, Heme/Lymph: No Bruising, No Bleeding,No Lymphadenopathy Endocrine : No Polyuria, No Polydipsia, No Temperature Intolerance [facility] Past Medical History Medical History No active medical problems Social History Social History Alcohol intake: never Patient Tobacco Use Status: Never used Tobacco Use of substances other than those prescribed or required for medical reasons: Yes Substance Use Type: Marijuana Substance Use Frequency: Occasionally Advance Directives: No Advance Directives Information Provided: Yes Patient : No Physical Exam Vital Signs: Vital Signs: Last Vital Signs Temp 99.3 F 05/14/22 12:00 Pulse 94 05/14/22 12:00 Resp 18 05/14/22 12:00 BP 119/71 05/14/22 12:00 Pulse Ox 97 05/14/22 12:00 O2 Del Method 05/14/22 12:00 BMI result Body Mass Index 25.7 Const: Other: Appearance: Alert. Oriented X3. No acute distress. Eyes: Pupils equal, round and reactive to light. ENT: Pharynx normal. Neck: Normal inspection. Neck supple. No lymph nodes noted. No crepitus CVS: Normal heart rate and rhythm. Pulses normal. Normal S1 and S2 Respiratory: No respiratory distress. Breath sounds normal. No Wheezing. No rales Abdomen: Soft and nontender. No rigidity. No distention. Skin: Skin warm and dry. Normal skin color. Normal skin turgor. Extremities: No lower extremity edema. No Lacerations. No Rash Neuro: Oriented X 3. No motor deficit. No sensory deficit. Moving all extremities. No slurred speech. CN 2 through 12 grossly intact Psych: calm, cooperative, normal affect Course Course Course Narrative: Labs pending. Patient is receiving IV fluids, already had sublingual Zofran, now getting IV Compazine. Patient does not seem dehydrated, hematology and c hemistry are unremarkable. COVID test negative. HCG pending Patient giving the above-mentioned treatment, patient feeling much better. Also, patient's hCG is elevated, equivalent to approximately 6-7 weeks of gestational age. Patient is now a A1, she will follow-up with her OBGYN. MDM - Nausea/Vomiting/Diarrhea Lab Data Result diagrams: 05/14/22 11:52 05/14/22 11:52 Labs: Lab Results 05/14/22 05/14/22 05/14/22 Range/Units 11:52 11:52 11:52 WBC 10.2 (4.8-10.8) X10*3/uL RBC 4.66 (4.20-5.50) X10*6/uL Hgb 13.9 (12.0-16.0) g/dl Hct 40.5 (37.0-47.0) % MCV 86.9 (80.0-98.0) fL MCH 29.8 (27.0-33.0) pg MCHC 34.3 (31.0-35.0) g/dl RDW 13.1 (11.0-16.0) % Plt Count 311 (160-400) X10*3/uL MPV 10.1 (9.4-12.3) fL Immature Gran % (Auto) 0.7 H (0.0-0.4) % Neut % (Auto) 73.1 H (45-73) % Lymph % (Auto) 16.4 L (20-40) % [place] % (Auto) 9.2 (2-11) % Eos % (Auto) 0.4 (0-4) % Baso % (Auto) 0.2 (0-2) % Lymph # (Auto) 1.7 (1.2-4.9) X10*3/uL [place] # (Auto) 0.9 (0.1-1.2) X10*3/uL Eos # (Auto) 0.0 (0.0-0.4) X10*3/uL Baso # (Auto) 0.0 (0.0-0.2) X10*3/uL Abs Immat Gran (auto) 0.07 H (0.00-0.03) X10*3/uL Absolute Neuts (auto) 7.4 (2.0-8.3) x10*3/uL Absolute Nucleated RBC 0.000 (0.0-0.012) X10*3/uL Nucleated RBC % (auto) 0.0 (0.0-0.2) /100WBC Sodium 138 (135-145) mmol/L Potassium 3.6 (3.3-5.1) mmol/L Chloride 106 (96-108) mmol/L Carbon Dioxide 22 (22-29) mmol/L Anion Gap 14 (12-20) BUN 9 (9-16) mg/dL Creatinine 0.70 (0.5-1.4) mg/dL Estim Creat Clear Calc 99.3 Estimated GFR > 60 Random Glucose 98 (60-115) mg/dL Calcium 10.2 (8.4-10.2) mg/dL Lipase 8 (8-78) U/L Beta HCG, Quant 56620 mIU/mL COVID-19 ([facility]) Negative (Negative) COVID-19 Clin Com See Note Discharge Plan Discharge Clinical Impression: Nausea & vomiting, Patient Disposition: Home, Self-Care Instructions: Nausea and Vomiting in (ED) Additional Instructions: Please follow-up with your primary care physician tomorrow. If you have any worsening or new symptoms, please return to the emergency room or call 911 Prescriptions: New prochlorperazine maleate [Compazine] 5 mg tablet 5 mg PO TID PRN (Reason: nausea and vomiting) Qty: 20 0RF prenat.vits,kiana,pud-enir-ghlgz Tablet 1 tab PO DAILY Qty: 30 8RF No Action oxycodone 5 mg Tablet 5 mg PO Q3-4H PRN (Reason: Pain, Severe (Pain Scale 7-10)) Qty: 20 0RF desogestrel-ethinyl estradiol [Apri] 0.15-0.03 mg tablet 1 tab PO DAILY 28 Days Qty: 28 2RF Referrals: Ghanshyam Guevara MD [Physician] - 2 days (New )
[2022-05-14 12:37] LABS: Lipase 8 U/L (8-78)
[2022-05-14] MEDS: 0.9 % Sodium Chloride 1,000 ML 999 ML IVCONT (12:42)
[2022-05-14] MEDS: Prochlorperazine Edisylate 10 MG/2 ML VIAL IVPUSH (12:51)
--- NOTE | 2022-05-14 12:51 | PC.NURSE ---
patient a&ox3, vss, iv inserted, labs previously drawn in triage, ivf running per order, pt medicated per order, call morrison within reach, will continue to monitor.
[2022-05-14 13:13] LABS: HCG Quantitative 47754 mIU/mL
== END 2022-05-14 13:50 | disposition home or self-care (01) ==
PROVIDERS: Emergency Provider Emergency Medicine
DX: O26.91 Pregnancy related conditions, unspecified, first trimester (principal); R11.2 Nausea with vomiting, unspecified; Z3A.01 Less than 8 weeks gestation of pregnancy; Z20.822 Contact with and (suspected) exposure to COVID-19; Z79.899 Other long term (current) drug therapy
CPT/HCPCS: 80048; 83690; 84702; 85025; 87635; 96361; 96374; 96375; 99284

== ENCOUNTER → 2022-06-23 10:11 | Outpatient (BNVA) | payer OTHER, SELFPAY | PROVIDERS: Visit Provider Advanced Practice Midwife | DX: Z32.01 Encounter for pregnancy test, result positive (principal) | CPT/HCPCS: 81025; 99202 ==

== ENCOUNTER 2022-06-27 11:34 | Outpatient (REF) | payer OTHER, SELFPAY ==
--- NOTE | ~2022-06-27 | US_ITS ---
EXAMINATION: US OBSTETRICAL ULTRASOUND CLINICAL INFORMATION: Encounter versus supervision of normal COMPARISON: None. LMP: Unsure. Gestational age by maternal dates is unsure. Estimated date of delivery by maternal dates is unknown. TECHNIQUE: Routine transabdominal imaging of pelvis is performed. FINDINGS: There is a single intrauterine gestational sac with visible yolk sac, embryo/fetus, and cardiac activity. There is no significant subchorionic hemorrhage or hematoma. HR: 160 beats per minute. CRL (crown rump length): 6.35 cm (12 weeks 6 days +/- 4 days). KATARINA (estimated date of delivery): 01/03/2023 +/- 4 days. MATERNAL ADNEXA: The right maternal ovary measures 2.5 x 1.0 x 1.5 cm. No focal lesion seen. The left maternal ovary measures 2.3 x 1.4 x 2.9 cm. No focal lesion seen There is no significant maternal adnexal mass. No maternal pelvic ascites. US/US OB <= 14 weeks fetus IMPRESSION: 1. Single intrauterine gestation with ultrasound gestational age of 12 weeks and 6 days +/- 4 days. 2. Estimated date of delivery is 01/03/2023 +/- 4 days. 3. No maternal adnexal mass or pelvic ascites.
== END 2022-06-27 11:35 | disposition home or self-care (01) ==
LOC: HO.US 11:34
PROVIDERS: Visit Provider Advanced Practice Midwife
DX: O09.511 Supervision of elderly primigravida, first trimester (principal); Z3A.12 12 weeks gestation of pregnancy
CPT/HCPCS: 76801

== ENCOUNTER → 2022-07-11 09:46 | Outpatient (BNVA) | payer OTHER, SELFPAY | PROVIDERS: Visit Provider Advanced Practice Midwife | DX: O09.522 Supervision of elderly multigravida, second trimester (principal); Z3A.14 14 weeks gestation of pregnancy | CPT/HCPCS: 99212 ==

== ENCOUNTER 2022-07-17 10:15 | Outpatient (REF) | payer OTHER, SELFPAY ==
[2022-07-17 12:26] LABS: Hematocrit 36.7 % (37.0-47.0); Hemoglobin 12.3 g/dl (12.0-16.0); Mean Corpuscular HGB Conc 33.5 g/dl (31.0-35.0); Mean Corpuscular Hemoglobin 30.4 pg (27.0-33.0); Mean Corpuscular Volume 90.6 fL (80.0-98.0); Mean Platelet Volume 10.5 fL (9.4-12.3); Platelet Count 223 X10*3/uL (160-400); Red Blood Count 4.05 X10*6/uL (4.20-5.50); Red Cell Distribution Width 14.5 % (11.0-16.0)
[2022-07-17 12:59] LABS: Glucose 1 Hour PP 50gm Dose 120 mg/dL (60-140)
[2022-07-17 14:45] LABS: Amphetamine Screen Urine Not Detected (Not Detect); Barbiturates, Urine Not Detected (Not Detect); Benzodiazepines Screen Urine Not Detected (Not Detect); Cannabinoid Screen Urine Not Detected (Not Detect); Cocaine Screen Urine Not Detected (Not Detect); Fentanyl, urine Not Detected (Not Detect); Opiate Screen Urine Not Detected (Not Detect); Phencyclidine Screen Urine Not Detected (Not Detect)
[2022-07-18 05:19] LABS: HIV AB/AG Nonreactive (Nonreactive); HIV Num 1 0.07 S/CO (0.00-0.99); Hepatitis B Surface Antigen Negative (Negative); ~HepC Num1 0.07 S/CO (0.00-0.79); ~Hepatitis C Antibody Nonreactive (Nonreactive)
[2022-07-18 06:34] LABS: Syphilis Screen Nonreactive (Nonreactive)
[2022-07-18 21:26] LABS: Rubella IgG Antibody 1.32 Index
[2022-07-21 22:52] LABS: Hematocrit 36.1 % (35.0-45.0); Hemoglobin 12.5 g/dL (11.7-15.5); MCH 31.4 pg (27.0-33.0); MCV 90.7 fL (80.0-100.0); RBC 3.98 Million/uL (3.80-5.10); RDW 13.7 % (11.0-15.0)
== END 2022-07-17 10:16 | disposition home or self-care (01) ==
LOC: HO.LAB 10:15
PROVIDERS: Visit Provider Advanced Practice Midwife
DX: Z32.01 Encounter for pregnancy test, result positive (principal)
CPT/HCPCS: 80307; 83020; 85014; 85018; 85027; 85041; 86762; 86780; 86787; 86803; 86850; 86900; 87086; 87340; 87389

== ENCOUNTER 2022-07-19 15:41 | Emergency (ER) | payer OTHER, SELFPAY ==
--- NOTE | ~2022-07-19 | US_ITS ---
EXAMINATION: US OBSTETRICAL ULTRASOUND CLINICAL INFORMATION: 14 weeks c left abd pain COMPARISON: 06/27/2022 LMP: 03/29/2022.. Gestational age by maternal dates is 16 weeks 0 days Estimated date of delivery by maternal dates is . TECHNIQUE: Real time transabdominal imaging with color and M-mode Doppler. POSITION: Variable/cephalic. PLACENTA: Posterior, unremarkable AMNIOTIC FLUID: Index not obtained. Volume is grossly within normal limits. ANATOMY: There is no gross structural abnormality identified. cardiac activity is 155 beats per minute. Cervix: Closed US/US OB limited IMPRESSION: Unremarkable limited second trimester ultrasound. Normal heart rate. Cervix is closed. No acute findings.
[2022-07-19 15:56] VITALS: BP 108/68; PULSE 99; RESP 17; TEMP 36.6; O2SAT 97; BMI 29.8
[2022-07-19 18:36] VITALS: BP 103/63; PULSE 94; RESP 18; TEMP 37.1; O2SAT 100
[2022-07-19 18:52] LABS: MANUAL DIFF FLAG NO
[2022-07-19 18:54] LABS: Basophils Percent Auto 0.2 % (0-2); Eosinophils Absolute Auto 0.1 X10*3/uL (0.0-0.4); Eosinophils Percent Auto 1.3 % (0-4); Hematocrit 33.3 % (37.0-47.0); Hemoglobin 11.2 g/dl (12.0-16.0); Imm Gran Abs Auto 0.17 X10*3/uL (0.00-0.03); Imm Gran Pct Auto 2.1 % (0.0-0.4); Lymphocytes Absolute Auto 1.8 X10*3/uL (1.2-4.9); Lymphocytes Percent Auto 22.1 % (20-40); Mean Corpuscular HGB Conc 33.6 g/dl (31.0-35.0); Mean Corpuscular Hemoglobin 30.5 pg (27.0-33.0); Mean Corpuscular Volume 90.7 fL (80.0-98.0); Monocytes Absolute Auto 0.7 X10*3/uL (0.1-1.2); Neutrophils Absolute Auto 5.4 x10*3/uL (2.0-8.3); Neutrophils Percent Auto 66.3 % (45-73); Platelet Count 224 X10*3/uL (160-400); Red Blood Count 3.67 X10*6/uL (4.20-5.50); Red Cell Distribution Width 14.6 % (11.0-16.0); White Blood Count 8.2 X10*3/uL (4.8-10.8)
--- NOTE | 2022-07-19 18:55 | PC.NURSE ---
patient a&ox3, vss, pt c/o llq abd pain, pt labs drawn by tech, Doppler performed, pt stated she was unable to give a urine as of yet, call morrison within reach, will continue to monitor.
[2022-07-19 19:01] LABS: Prothrombin Time 11.3 SEC (10.0-13.1)
[2022-07-19 19:08] LABS: Alanine Aminotransferase 17 U/L (0-31); Albumin Level 3.7 g/dL (3.5-5.0); Alkaline Phosphatase 41 U/L (39-117); Anion Gap 13 (12-20); Aspartate Amino Transferase 19 U/L (5-31); Bilirubin Total 0.4 mg/dL (0.0-1.0); Blood Urea Nitrogen 5 mg/dL (9-16); Calcium 9.6 mg/dL (8.4-10.2); Carbon Dioxide 23 mmol/L (22-29); Chloride 105 mmol/L (96-108); Creatinine Clr Calc Pharmacy 133.2; Estimated Glomerular Filt Rate > 60; Glucose Random 89 mg/dL (60-115); Magnesium 1.8 mg/dL (1.6-2.6); Potassium 3.9 mmol/L (3.3-5.1); Sodium 137 mmol/L (135-145); Total Protein 6.2 g/dL (6.5-8.0)
[2022-07-19 19:34] LABS: HCG Quantitative 35758 mIU/mL
--- NOTE | 2022-07-19 19:55 | ED.PREGNANCY ---
HPI - General Chief complaint: OB Stated complaint: Abd pain/ 15 Wks preg Time Seen by Provider: 07/19/22 18:14 Source: patient Mode of arrival: ambulatory Limitations: no limitations History of Present Illness HPI Narrative: 36-year-old female who is [id number] with 1 ectopic on presenting to the ED with complaints of left lower quadrant abdominal pain radiating to her left suprapubic area over the past hour. She denies any fevers, chills, dizziness, headaches, neck pain/stiffness, trouble swallowing or breathing, chest pain or shortness of breath, flank pain, rashes, recent falls or trauma, back pain, dysuria, hematuria, abnormal vaginal discharge, vaginal bleeding or any other symptoms complaints or concerns at this time. She reports she is eating and drinking normally. She reports she is being followed by Esmer Fish here at [facility] and she had a ultrasound to confirm intrauterine . MD Complaint: abdominal pain Onset (ago): hour(s) (Prior to arrival) Pain Consistency: constant Location: abdomen (Left lower quadrant) Severity: mild Quality: Cramping Radiation: pelvis Relieving factors: none Exacerbating factors: none Associated symptoms: denies other symptoms Vaginal discharge: none Vaginal bleeding: none Hx Last Menstrual Period: Unknown Patient : Yes Expected Date of Delivery: 01/03/23 Number of Weeks : 12.6 weeks OB History - Current : no complications OB History - Previous Pregnancies: miscarriage (Ectopic on 11/27/2021 with partial left salpingectomy) care: followed by OB and previous ultrasound confirms IUP Related Data : 4 Para: 2 Total number of abortions (spontaneous and elective): 1 Previous Rx's Medication Instructions Recorded prenat.vits,kiana,[id number]-[id number] 1 tab PO DAILY #30 tabs 05/14/22 metronidazole 500 mg tablet 500 mg PO BID 7 days #14 tabs 07/19/22 nitrofurantoin 100 mg PO BID 7 days #14 caps 07/19/22 monohydrate/macrocrystals 100 mg capsule (Macrobid) Allergies Allergy/AdvReac Type Severity Reaction Status Date / Time No Known Allergies Allergy Verified 07/19/22 15:56 Review of Systems Review of Systems: Constitutional : No Fever, No Chills ENT/Mouth : No sore throat, No Rhinorrhea Eyes: No Eye Pain, No Redness Cardiovascular : No Chest Pain, No SOB Respiratory : No Cough, No Sputum, No Wheezing Gastrointestinal : No Nausea, No Vomiting, No Diarrhea, + abdominal pain, Genitourinary : No irregular bleeding, No Dysuria, No Urinary Frequency, No pelvic pain, No vaginal discharge, no hematuria Musculoskeletal : No Myalgias Skin : No rash Neuro : No Weakness, No Headache Psych : No Anxiety/Panic, No Depression Heme/Lymph: No bruising, No Lymphadenopathy Endocrine : No Polyuria, No Polydipsia Yes all other systems are reviewed and are negative [facility] Past Medical History Attestation statement: The following information was validated with the patient. Source: old records reviewed and nursing notes reviewed Medical History No active medical problems Surgical History History of salpingectomy : 4 Para: 2 Total number of abortions (spontaneous and elective): 1 Hx Last Menstrual Period: Unknown Family History Family History Brother Seizure Cardiac arrest due to other underlying condition Social History Social History Household Members: Children Are you a primary inspector health care facilities to a significant other at home: No Do you presently have visiting nurse or other home services: No Alcohol intake: never Patient Tobacco Use Status: Never used Tobacco Use of substances other than those prescribed or required for medical reasons: No Substance Use Type: Marijuana Special jarek needs: No Agree to transfusion: Yes Advance Directives: No Advance Directives Information Provided: No Patient : Yes Physical Exam Vital Signs: Vital Signs: Last Vital Signs Temp 98.7 F 07/19/22 18:36 Pulse 94 07/19/22 18:36 Resp 18 07/19/22 18:36 BP 103/63 07/19/22 18:36 Pulse Ox 100 07/19/22 18:36 O2 Del Method 07/19/22 18:36 BMI result Body Mass Index 29.8 vital signs have been reviewed as normal and appeared to be correct. Blood pressure normal. Heart rate normal. Respiration rate normal. Temperature normal. Oxygen saturation normal. Appearance: Alert. Oriented X3. No acute distress. Head: Normal external exam. Normocephalic. Atraumatic. Eyes: PERRLA. EOMI. Conjunctiva and sclera normal. Eyelids normal. ENT: Pharynx normal. Uvula midline. Moist mucous membranes. No trismus noted. No drooling noted. No muffled voice noted. Neck: Normal inspection. Neck supple. FROM. No adenopathy. Thyroid Normal. No meningeal signs. No neck mass noted. CVS: Normal heart rate and rhythm. Heart sound normal. No murmurs noted. Pulses normal throughout. Respiratory: No respiratory distress. Painless inspiration. Breath sounds normal. No wheezes/rales/rhonchi noted. Chest nontender. No accessory muscle usage noted or decreased air movement noted. Abdomen: Soft and mild tenderness palpation to the left lower quadrant/suprapubic area. Bowel sounds normal in all 4 quadrants. No distention noted. No organomegaly noted. No visible injury noted. Gravid uterus consistent with dates. : Supervised by RN, Normal external appearance of urethra. No lesions/lacerations or discharge or tenderness noted. Speculum exam normal appearance/palpation of vagina normal. Patient noted to have a thin white/yellow colored vaginal discharge. No additional discharge noted. Otherwise no vaginal erythema. No foreign bodies noted. No vaginal laceration/lesions or active bleeding noted. No tissue present in vagina. No vaginal mass noted. No vaginal swelling noted. No vaginal tenderness noted. Normal appearance of cervix. Normal palpation of cervix. Cervical os is closed. No cervical lesion/mass. No Bartholin cyst noted. No cervical motion tenderness noted. Negative chandelier sign. Normal bimanual exam. Uterine size normal. Bladder normal to palpation. Uterine consistency normal. Normal cervical palpation. Uterine mobility normal. Uterine shape normal. Normal adnexa. Normal rectovaginal exam. Back: No CVA tenderness. Full range of motion noted. Skin: Skin warm and dry. Normal skin color. Normal skin turgor. No rashes/lesions/lacerations noted. Extremities: No lower extremity edema. Extremities exhibit normal range of motion. Extremities nontender. Neuro: Oriented X 3. No motor deficit. No sensory deficit. Reflexes normal. Course Course Course Narrative: 18:20pm - 36-year-old female who is [id number] with 1 ectopic on presenting to the ED with complaints of left lower quadrant abdominal pain radiating to her left suprapubic area over the past hour. She reports she is eating and drinking normally. She reports she is being followed by Esmer Fish here at [facility] and she had a ultrasound to confirm intrauterine . Plan: Will obtain labs, serum quant, ABO/Rh type, ultrasound, UA perform a vaginal exam re-evaluate. Reevaluation(s) Reevaluation #1: - labs reviewed patient with mild baseline anemia with an H&H of 11.2/33.3. BUN 5. Total protein 6.2. Serum quant 35,758 which is appropriately elevated. - awaiting ultrasound. Time: 20:00 Reevaluation #2: - ultrasound was unremarkable limited 2nd trimester ultrasound. Normal heart rate. Cervix is closed. No acute findings noted. - I did send a gonorrhea/chlamydia/bacterial vaginosis and Trichomonas swab as patient was noted to have of thin white/yellow colored vaginal discharge although no vaginal bleeding and cervical os was closed on my speculum/vaginal exam. - patient is B positive for blood type. - UA is pending at this time. If UA is negative patient can be discharged with instructions follow-up with OBGYN and to return if any worsening abdominal cramping or she develops any vaginal bleeding or any other symptoms. Patient understands agrees with this plan. Time: 20:32 Reevaluation #3: Patient has small leukocytes therefore will treat for UTI. Patient also positive for Trichomonas therefore she will need to be treated. I will also instruct her that her significant other or any other sexual contacts need to be treated as well. Will also treat her for gonorrhea with 500 mg of IM Rocephin. Will treat for chlamydia with 1 g of azithromycin as well. Will DC home with instructions return if any new or worsening symptoms follow-up with OBGYN. Patient understands agrees with this plan. Time: 21:21 MDM - OB/Uterine Contractions Medical Records Attestation: I reviewed the patient's medical records. Lab Data Attestation: I reviewed the patient's lab results. Result diagrams: 07/19/22 18:45 07/19/22 18:45 Labs: Lab Results 07/19/22 07/19/22 07/19/22 Range/Units 18:45 18:45 18:45 WBC 8.2 (4.8-10.8) X10*3/uL RBC 3.67 L (4.20-5.50) X10*6/uL Hgb 11.2 L (12.0-16.0) g/dl Hct 33.3 L (37.0-47.0) % MCV 90.7 (80.0-98.0) fL MCH 30.5 (27.0-33.0) pg MCHC 33.6 (31.0-35.0) g/dl RDW 14.6 (11.0-16.0) % Plt Count 224 (160-400) X10*3/uL MPV 10.0 (9.4-12.3) fL Immature Gran % (Auto) 2.1 H (0.0-0.4) % Neut % (Auto) 66.3 (45-73) % Lymph % (Auto) 22.1 (20-40) % [place] % (Auto) 8.0 (2-11) % Eos % (Auto) 1.3 (0-4) % Baso % (Auto) 0.2 (0-2) % Lymph # (Auto) 1.8 (1.2-4.9) X10*3/uL [place] # (Auto) 0.7 (0.1-1.2) X10*3/uL Eos # (Auto) 0.1 (0.0-0.4) X10*3/uL Baso # (Auto) 0.0 (0.0-0.2) X10*3/uL Abs Immat Gran (auto) 0.17 H (0.00-0.03) X10*3/uL Absolute Neuts (auto) 5.4 (2.0-8.3) x10*3/uL Absolute Nucleated RBC 0.000 (0.0-0.012) X10*3/uL Nucleated RBC % (auto) 0.0 (0.0-0.2) /100WBC PT 11.3 (10.0-13.1) SEC INR 1.0 (0.9-1.1) Sodium 137 (135-145) mmol/L Potassium 3.9 (3.3-5.1) mmol/L Chloride 105 (96-108) mmol/L Carbon Dioxide 23 (22-29) mmol/L Anion Gap 13 (12-20) BUN 5 L (9-16) mg/dL Creatinine 0.56 (0.5-1.4) mg/dL Estim Creat Clear Calc 133.2 Estimated GFR > 60 Random Glucose 89 (60-115) mg/dL Calcium 9.6 (8.4-10.2) mg/dL Magnesium 1.8 (1.6-2.6) mg/dL Total Bilirubin 0.4 (0.0-1.0) mg/dL AST 19 (5-31) U/L ALT 17 (0-31) U/L Alkaline Phosphatase 41 (39-117) U/L Total Protein 6.2 L (6.5-8.0) g/dL Albumin 3.7 (3.5-5.0) g/dL Beta HCG, Quant mIU/mL Urine Color Urine Appearance Urine pH (5.0-8.0) Ur Specific [employer] (1.005-1.025) Urine Protein (Neg-Trace) mg/dL Urine Glucose (UA) (Negative) mg/dL Urine Ketones (Negative) mg/dL Urine Blood (Negative) Urine Nitrite (Negative) Ur Leukocyte Esterase (Negative) Urine RBC (0-2) /HPF Urine WBC (0-5) /HPF Ur Squamous Epith Cells (0-2) /HPF Urine Bacteria (None Seen) Hyaline Casts (0-2) /LPF Blood Type 07/19/22 07/19/22 07/19/22 Range/Units 18:45 18:45 20:43 WBC (4.8-10.8) X10*3/uL RBC (4.20-5.50) X10*6/uL Hgb (12.0-16.0) g/dl Hct (37.0-47.0) % MCV (80.0-98.0) fL MCH (27.0-33.0) pg MCHC (31.0-35.0) g/dl RDW (11.0-16.0) % Plt Count (160-400) X10*3/uL MPV (9.4-12.3) fL Immature Gran % (Auto) (0.0-0.4) % Neut % (Auto) (45-73) % Lymph % (Auto) (20-40) % [place] % (Auto) (2-11) % Eos % (Auto) (0-4) % Baso % (Auto) (0-2) % Lymph # (Auto) (1.2-4.9) X10*3/uL [place] # (Auto) (0.1-1.2) X10*3/uL Eos # (Auto) (0.0-0.4) X10*3/uL Baso # (Auto) (0.0-0.2) X10*3/uL Abs Immat Gran (auto) (0.00-0.03) X10*3/uL Absolute Neuts (auto) (2.0-8.3) x10*3/uL Absolute Nucleated RBC (0.0-0.012) X10*3/uL Nucleated RBC % (auto) (0.0-0.2) /100WBC PT (10.0-13.1) SEC INR (0.9-1.1) Sodium (135-145) mmol/L Potassium (3.3-5.1) mmol/L Chloride (96-108) mmol/L Carbon Dioxide (22-29) mmol/L Anion Gap (12-20) BUN (9-16) mg/dL Creatinine (0.5-1.4) mg/dL Estim Creat Clear Calc Estimated GFR Random Glucose (60-115) mg/dL Calcium (8.4-10.2) mg/dL Magnesium (1.6-2.6) mg/dL Total Bilirubin (0.0-1.0) mg/dL AST (5-31) U/L ALT (0-31) U/L Alkaline Phosphatase (39-117) U/L Total Protein (6.5-8.0) g/dL Albumin (3.5-5.0) g/dL Beta HCG, Quant 17930 mIU/mL Urine Color Yellow Urine Appearance Clear Urine pH 6.5 (5.0-8.0) Ur Specific [employer] 1.020 (1.005-1.025) Urine Protein Negative (Neg-Trace) mg/dL Urine Glucose (UA) Negative (Negative) mg/dL Urine Ketones 80 (Negative) mg/dL Urine Blood Negative (Negative) Urine Nitrite Negative (Negative) Ur Leukocyte Esterase Small (1+) H (Negative) Urine RBC 0-2 (0-2) /HPF Urine WBC 0-5 (0-5) /HPF Ur Squamous Epith Cells 3-5 (0-2) /HPF Urine Bacteria None Seen (None Seen) Hyaline Casts 0-2 (0-2) /LPF Blood Type B Positive Imaging Data OB ultrasound.: Attestation: I personally reviewed and interpreted this imaging study as follows: Radiologist's impression: LMP: 03/29/2022.. Gestational age by maternal dates is 16 weeks 0 days Estimated date of delivery by maternal dates is . TECHNIQUE: Real time transabdominal imaging with color and M-mode Doppler. POSITION: Variable/cephalic. PLACENTA: Posterior, unremarkable AMNIOTIC FLUID: Index not obtained. Volume is grossly within normal limits. ANATOMY: There is no gross structural abnormality identified. cardiac activity is 155 beats per minute. Cervix: Closed US/US OB limited IMPRESSION:? Unremarkable limited second trimester ultrasound. Normal heart rate. Cervix is closed. No acute findings. Procedures Perimortem Number of Weeks : 12.6 weeks Discharge Plan Discharge Clinical Impression: Abdominal pain in , UTI (urinary tract infection), Trichomonas vaginitis Patient Disposition: Home, Self-Care Instructions: Trichomoniasis (ED), Abdominal Pain in (ED), Urinary Tract Infection in (ED) Additional Instructions: You have pending lab results if any are positive you will be contacted within 5-7 days. If you have the patient portal you can check the results sooner. Return if any new or worsening symptoms especially if you develop any vaginal bleeding or any worsening abdominal pain. You should have your partners tested and treated for all STDs including Trichomonas. Do not have any sexual intercourse until at least 10 days. Or any other symptoms complaints or concerns at this time. You should follow-up with your OBGYN this week. Prescriptions: New nitrofurantoin monohyd/m-cryst [Macrobid] 100 mg capsule 100 mg PO BID 7 Days Qty: 14 0RF Rx Instructions: must administer with a meal/food metronidazole 500 mg tablet 500 mg PO BID 7 Days Qty: 14 0RF No Action prenat.vits,kiana,[id number] Tablet 1 tab PO DAILY Qty: 30 8RF Referrals: Physician,None [Primary Care Provider] - 3 days (your pcp/obgyn) Ghanshyam Guevara MD [Physician] - 3 days Stand Alone Forms: Work/School Release
[2022-07-19 20:58] LABS: Appearance Urine Clear; Color Urine Yellow; Glucose Urine UA Negative (Negative); Leukocyte Esterase Urine Small (1+) (Negative); Nitrite Urine Negative (Negative); PH 6.5 (5.0-8.0); Urine Blood Negative (Negative); Urine Ketones 80 mg/dL (Negative); Urine Protein Negative (Neg-Trace)
[2022-07-19 21:20] LABS: Bacteria Urine None Seen (None Seen); Hyaline Casts Urine 0-2 /LPF (0-2); RBC Urine 0-2 /HPF (0-2); UACC Culture Trigger YES; WBC Urine 0-5 /HPF (0-5)
[2022-07-19] MEDS: Azithromycin 500 MG TABLET 1000 MG PO (22:22)
[2022-07-19] MEDS: cefTRIAXone sodium 500 MG, Lidocaine HCl 1 % MPF 1 ML IM (22:23)
[2022-07-19] MEDS: Lidocaine HCl 1 % MPF 2 ML VIAL INFILTRATI (22:24)
--- NOTE | 2022-07-19 22:27 | PC.NURSE ---
I assumed care of Myriam at 1900. Since that time she has remained alert, oriented x 3, calm and cooperative. She makes eye contact with RN and is able to verbalize her needs adequately. She has ambulated to and from the bathroom independently and with steady gait. She has taken PO food and fluids without difficulty. She denies difficulty voiding and has provided a urine sample for UA without difficulty. She has been discharged at this time. We reviewed proper uses and indications for Abx and she verbalized an understanding of this
[2022-07-20 12:00] LABS: CT PCR NOT DETECTED (Not Detect.); NG PCR NOT DETECTED (Not Detect.)
[2022-07-20 13:56] LABS: BV Int Neg Control Negative (Negative); BV Int Pos Control Positive (Positive)
== END 2022-07-19 22:42 | disposition home or self-care (01) ==
PROVIDERS: Physician Assistant Medical; Emergency Provider Emergency Medicine
DX: O26.891 Other specified pregnancy related conditions, first trimester (principal); R10.9 Unspecified abdominal pain; O23.41 Unspecified infection of urinary tract in pregnancy, first trimester; N39.0 Urinary tract infection, site not specified; O98.311 Other infections with a predominantly sexual mode of transmission complicating pregnancy, first trimester; A59.01 Trichomonal vulvovaginitis; Z3A.12 12 weeks gestation of pregnancy
CPT/HCPCS: 36415; 76815; 80053; 81001; 81003; 83735; 84702; 85025; 85610; 86900; 86901; 87086; 87480; 87491; 87510; 87591; 87660; 96372; 99284; J0696

== ENCOUNTER 2022-08-06 10:14 | Outpatient (REF) | payer OTHER, SELFPAY ==
[2022-08-06 19:10] LABS: CT PCR NOT DETECTED (Not Detect.); NG PCR NOT DETECTED (Not Detect.)
[2022-08-07 12:24] LABS: BV Int Neg Control Negative (Negative); BV Int Pos Control Positive (Positive)
[2022-08-09 05:51] LABS: HPV mRNA E6/E7 rflx Not Detected (Not Detected)
== END 2022-08-06 10:15 | disposition home or self-care (01) ==
LOC: HO.LNP 10:14
PROVIDERS: Visit Provider Advanced Practice Midwife
DX: Z34.92 Encounter for supervision of normal pregnancy, unspecified, second trimester (principal); Z3A.18 18 weeks gestation of pregnancy
CPT/HCPCS: 81003; 87480; 87491; 87510; 87591; 87624; 87660; 88142; 99212

== ENCOUNTER → 2022-09-03 10:23 | Outpatient (BNVA) | payer OTHER, SELFPAY | PROVIDERS: Visit Provider Advanced Practice Midwife | DX: Z34.82 Encounter for supervision of other normal pregnancy, second trimester (principal); Z3A.22 22 weeks gestation of pregnancy | CPT/HCPCS: 81003; 99212 ==

== ENCOUNTER → 2022-10-07 14:11 | Outpatient (BNVA) | payer OTHER, SELFPAY | PROVIDERS: Visit Provider Advanced Practice Midwife | DX: O09.522 Supervision of elderly multigravida, second trimester (principal); Z3A.27 27 weeks gestation of pregnancy | CPT/HCPCS: 99212 ==

== ENCOUNTER → 2022-11-07 10:56 | Outpatient (BNVA) | payer OTHER, SELFPAY | PROVIDERS: Visit Provider Advanced Practice Midwife | DX: O09.13 Supervision of pregnancy with history of ectopic pregnancy, third trimester (principal); Z3A.31 31 weeks gestation of pregnancy; Z23 Encounter for immunization | CPT/HCPCS: 81003; 90471; 90686; 99212 ==

== ENCOUNTER 2022-11-11 11:33 | Outpatient (REF) | payer OTHER, SELFPAY ==
[2022-11-11 13:27] LABS: Hematocrit 37.3 % (37.0-47.0); Hemoglobin 12.2 g/dl (12.0-16.0); Mean Corpuscular HGB Conc 32.7 g/dl (31.0-35.0); Mean Corpuscular Volume 91.9 fL (80.0-98.0); Mean Platelet Volume 11.5 fL (9.4-12.3); NRBC Pct Auto 0.7 /100WBC (0.0-0.2); Platelet Count 208 X10*3/uL (160-400); Red Blood Count 4.06 X10*6/uL (4.20-5.50); Red Cell Distribution Width 13.7 % (11.0-16.0); White Blood Count 7.7 X10*3/uL (4.8-10.8)
[2022-11-11 13:34] LABS: Glucose 1 Hour PP 50gm Dose 106 mg/dL (60-140)
[2022-11-12 04:31] LABS: Syphilis Screen Nonreactive (Nonreactive)
== END 2022-11-11 11:34 | disposition home or self-care (01) ==
LOC: HO.LAB 11:33
PROVIDERS: Visit Provider Advanced Practice Midwife
DX: Z34.93 Encounter for supervision of normal pregnancy, unspecified, third trimester (principal)
CPT/HCPCS: 36415; 82950; 85027; 86780

== ENCOUNTER 2022-11-25 10:12 | Outpatient (REF) | payer OTHER, SELFPAY ==
[2022-11-25 16:23] LABS: Appearance Urine Clear; Color Urine Yellow; Glucose Urine UA Negative (Negative); Leukocyte Esterase Urine Negative (Negative); Nitrite Urine Negative (Negative); PH 6.5 (5.0-9.0); Specific Gravity - Urine 1.015 (1.005-1.025); Urine Blood Negative (Negative); Urine Ketones Negative (Negative); Urine Protein Negative (Neg-Trace)
[2022-11-25 16:26] LABS: Bacteria Urine None Seen (None Seen); Hyaline Casts Urine 0-2 /LPF (0-2); WBC Urine 0-5 /HPF (0-5)
== END 2022-11-25 10:13 | disposition home or self-care (01) ==
LOC: HO.LNP 10:12
PROVIDERS: Visit Provider Advanced Practice Midwife
DX: O26.893 Other specified pregnancy related conditions, third trimester (principal); R10.9 Unspecified abdominal pain; L90.5 Scar conditions and fibrosis of skin; Z90.79 Acquired absence of other genital organ(s); Z3A.34 34 weeks gestation of pregnancy
CPT/HCPCS: 81001; 81003; 99212

== ENCOUNTER 2022-12-03 17:16 | Emergency (ER) | payer OTHER, SELFPAY ==
[2022-12-03 17:21] VITALS: BP 114/66; PULSE 98; RESP 18; TEMP 36.2; O2SAT 100; BMI 33.7
--- NOTE | 2022-12-03 17:21 | ED.PREGNANCY ---
HPI - General Chief complaint: Abdominal Pain Stated complaint: abdominal pain, 8 months preg Time Seen by Provider: 12/03/22 17:47 Source: patient and old records reviewed Mode of arrival: ambulatory Limitations: no limitations History of Present Illness HPI Narrative: 36 yo female , hx ectopic s/p salpigectomy in 11/2021 who presents to the ER with worsening LLQ pain for the last several weeks, acutely worsened today and unable to get out of the car today until it calmed down. Acutely worse with walking. Starting to settle down now. She was seen at [facility] yesterday for the same and had a normal U/S and checked to make sure the baby was okay and everything was. She denies uterine contractions, leakage of fluid, vaginal bleeding. MD Complaint: abdominal pain Onset (ago): week(s) Pain Consistency: intermittent Location: abdomen Severity: severe Severity scale (1-10): 9 Quality: Stabbing Radiation: abdomen Relieving factors: other (laying on left side) Exacerbating factors: movement Associated symptoms: denies other symptoms Vaginal discharge: none Vaginal bleeding: none Patient : Yes Expected Date of Delivery: 01/03/23 care: followed by OB Related Data : 4 Para: 2 Total number of abortions (spontaneous and elective): 1 Previous Rx's Medication Instructions Recorded prenat.vits,kiana,[id number]-[id number] 1 tab PO DAILY #30 tabs 05/14/22 Maternity Support Belt #1 ea 11/25/22 Allergies Allergy/AdvReac Type Severity Reaction Status Date / Time No Known Allergies Allergy Verified 12/03/22 17:26 Review of Systems Review of Systems: Yes all other systems are reviewed and are negative [facility] Past Medical History Medical History (Updated 12/03/22 @ 18:01 by WENDY Prieto) No active medical problems Surgical History (Updated 11/25/22 @ 11:02 by Esmer Fish CNM) History of salpingectomy : 4 Para: 2 Total number of abortions (spontaneous and elective): 1 Family History Family History Brother Seizure Cardiac arrest due to other underlying condition Social History Social History Household Members: Children Are you a primary hospice spiritual care coordinator to a significant other at home: No Do you presently have visiting nurse or other home services: No Alcohol intake: never Patient Tobacco Use Status: Never used Tobacco Substance Use Type: Marijuana Special jarek needs: No Agree to transfusion: Yes Advance Directives: No Advance Directives Information Provided: No Patient : Yes Physical Exam Vital Signs: Vital Signs: Last Vital Signs Temp 97.2 F 12/03/22 17:21 Pulse 98 12/03/22 17:21 Resp 18 12/03/22 17:21 BP 114/66 12/03/22 17:21 Pulse Ox 100 12/03/22 17:21 O2 Del Method 12/03/22 17:21 BMI result Body Mass Index 33.7 Appearance: Alert. Oriented X3. No acute distress. Eyes: Pupils equal, round and reactive to light. ENT: Pharynx normal. Neck: Normal inspection. Neck supple. CVS: Normal heart rate and rhythm. Pulses normal. Respiratory: No respiratory distress. Breath sounds normal. Abdomen: Gravid uterus to just below the xiphoid, Soft with tenderness of the left lower abdominal area. +BS x4 Skin: Skin warm and dry. Normal skin color. Normal skin turgor. No rashes. Extremities: No lower extremity edema. Neuro: Oriented X 3. Grossly normal, nonfocal Course Course Course Narrative: 36 yo female with history of ectopic s/p salpingectomy in Nov 2021 who is currently 8 months due 01/03 presents to the ER c/o worsening LLQ pain today after walking to pick her daughter up from school. Has been having pains for a while but got acutely worse today after walking, slowly subsiding now. Had U/S done at [facility] yesterday and the pain wasn't affecting the baby - said the pains could be due to scar tissue from the surgery or possible kidney stone. No uterine contractions, passage of fluid or blood. No dysuria or hematuria. Normal activity with increase in the pain. Calling [facility] to see if she can be evaluated there. Reevaluation(s) Reevaluation #1: FHT 160s. Spoke with referral specialist resident at [facility] - accepted to [facility] for evaluation. Patient updated on plan of care and transfer. Boyfriend to transfer via private car. Medical Decision Making Medical Decision Making MDM Narrative: 36 yo female currently 8 months presents to the ER c/o LLQ pain for weeks, acutely worse today. No clinical signs of labor. FHT 160s. DDx scar tissue from salpinectomy, round ligament pain, diverticulitis, UTI, kidney stone, muscular pain, tamika ha, active labor Differential Diagnosis Differential Diagnoses: The differential diagnosis associated with the presentation includes DDx scar tissue from salpinectomy, round ligament pain, diverticulitis, UTI, kidney stone, muscular pain, tamika ha, active labor Admission/Observation Consideration of admission/observation: Escalation of care including admission/observation considered will need to be transferred to [facility] for further evaluation Consult Healthcare Provider OB resident at [facility] External Record Review External record reviewed: Office record, Outpatient record and Prior outpatient labs Prescription Management I considered prescription management with: Pain Medication Discharge Plan Discharge Clinical Impression: Abdominal pain, left lower quadrant Patient Disposition: Xfer [facility] Transfer Details: [facility] Prescriptions: No Action prenat.vits,kiana,[id number] Tablet 1 tab PO DAILY Qty: 30 8RF (DME) Maternity Support Belt See Rx Instructions .ROUTE .MEDSUPPLY Qty: 1 0RF Rx Instructions: use daily for abdominal support as needed
[2022-12-03 18:04] LABS: COVID-19 Test Negative (Negative); IDNOW Serial# BCCEAD1C
== END 2022-12-03 18:21 | disposition short-term general hospital (02) ==
PROVIDERS: Physician Assistant; Emergency Provider Emergency Medicine
DX: O26.93 Pregnancy related conditions, unspecified, third trimester (principal); R10.32 Left lower quadrant pain; Z3A.32 32 weeks gestation of pregnancy; Z37.9 Outcome of delivery, unspecified; Z20.822 Contact with and (suspected) exposure to COVID-19; Z20.828 Contact with and (suspected) exposure to other viral communicable diseases
CPT/HCPCS: 87635; 99283; 99285

== ENCOUNTER 2022-12-12 12:48 | Outpatient (REF) | payer OTHER, SELFPAY ==
[2022-12-13 04:35] LABS: CT PCR NOT DETECTED (Not Detect.); NG PCR NOT DETECTED (Not Detect.)
[2022-12-14 15:13] LABS: Allergic to Penicillin? No
== END 2022-12-12 12:49 | disposition home or self-care (01) ==
LOC: HO.LNP 12:48
PROVIDERS: Visit Provider Advanced Practice Midwife
DX: O09.523 Supervision of elderly multigravida, third trimester (principal); O09.10 Supervision of pregnancy with history of ectopic pregnancy, unspecified trimester; O23.40 Unspecified infection of urinary tract in pregnancy, unspecified trimester; N39.0 Urinary tract infection, site not specified; Z90.79 Acquired absence of other genital organ(s); Z3A.36 36 weeks gestation of pregnancy; Z23 Encounter for immunization
CPT/HCPCS: 0353U; 87150; 90471; 90715; 99212

== ENCOUNTER → 2022-12-19 10:42 | Outpatient (BNVA) | payer OTHER, SELFPAY | PROVIDERS: Visit Provider Advanced Practice Midwife | DX: O09.523 Supervision of elderly multigravida, third trimester (principal); O09.13 Supervision of pregnancy with history of ectopic pregnancy, third trimester; Z90.79 Acquired absence of other genital organ(s); Z3A.37 37 weeks gestation of pregnancy | CPT/HCPCS: 99212 ==

== ENCOUNTER 2022-12-25 11:08 | Outpatient (REF) | payer OTHER, SELFPAY ==
[2022-12-26 09:16] LABS: BV Int Neg Control Negative (Negative); BV Int Pos Control Positive (Positive)
== END 2022-12-25 11:09 | disposition home or self-care (01) ==
LOC: HO.LNP 11:08
PROVIDERS: Visit Provider Obstetrics & Gynecology
DX: O26.893 Other specified pregnancy related conditions, third trimester (principal); A59.9 Trichomoniasis, unspecified; Z3A.38 38 weeks gestation of pregnancy
CPT/HCPCS: 87480; 87510; 87660; 99212

== ENCOUNTER → 2023-02-05 14:27 | Outpatient (BNVA) | payer OTHER, SELFPAY | PROVIDERS: Visit Provider Advanced Practice Midwife | DX: Z39.2 Encounter for routine postpartum follow-up (principal); Z39.1 Encounter for care and examination of lactating mother | CPT/HCPCS: 99212 ==